=== PATIENT | male | born 1985 | race Hispanic/Latino ===

== ENCOUNTER 2025-03-25 14:20 | Emergency (ER) | payer SELFPAY ==
--- NOTE | ~2025-03-25 | CT_ITS ---
EXAMINATION: CT abdomen pelvis wo con DATE: 03/25/2025 16:42 INDICATION: Abdominal pain radiating to the scrotum. Evaluate kidney stones. TECHNIQUE: Computed tomography (CT) of the abdomen and pelvis was performed without intravenous contrast. Automated exposure control and iterative reconstruction technique were employed. The dose-length product was 597.17 mGy-cm. COMPARISON: Ultrasound scrotum dated 03/25/2025. FINDINGS: Lung bases do not show any focal lesions. No focal lesions of liver and spleen. Gallbladder, pancreas do not show acute findings. No evidence of calculi or obstruction of the kidneys. No evidence of bladder calculus. Normal size prostate. No evidence of small bowel obstruction. Normal size appendix. No acute findings of the lumbar spine. IMPRESSION: 1. Limited noncontrast study is not optimal to evaluate the vascular structures, neoplasms and solid viscera. 2. No evidence of calculi or obstruction of the kidneys. Reviewed, dictated and finalized at location [facility] IMPRESSION: 1. Limited noncontrast study is not optimal to evaluate the vascular structures , neoplasms and solid viscera. 2. No evidence of calculi or obstruction of the kidneys.
--- NOTE | ~2025-03-25 | US_ITS ---
EXAMINATION: Ultrasound scrotum with Doppler: DATE: 03/25/2025. INDICATION: Scrotal pain. Fever. No history of trauma. TECHNIQUE: High resolution ultrasound scrotum with color Doppler study. were obtained. COMPARISON: None. FINDINGS: No intratesticular lesions. Perfusion is noted within the testes on both sides. Small bilateral hydrocele. Small, 4 mm cyst of the epididymis on both sides. Small left varicocele. IMPRESSION: 1. Color perfusion noted within the testis on both sides. 2. Small bilateral hydrocele, small bilateral epididymis cysts and small left varicocele. Reviewed, dictated and finalized at location [facility] IMPRESSION: 1. Color perfusion noted within the testis on both sides. 2. Small bilateral hydrocele, small bilateral epididymis cysts and small left v aricocele.
[2025-03-25 14:43] VITALS: BP 132/81; PULSE 72; RESP 18; TEMP 36.7; O2SAT 99
--- NOTE | 2025-03-25 15:31 | ED_ITS ---
HPI - Fever General Chief Complaint: Urogenital-Male <Kaleigh Tinoco PA-C - Last Filed: 03/25/25 18:24> Stated Complaint: FEVER X3D, PAIN IN GROIN <Kaleigh Tinoco PA-C - Last Filed: 03/25/25 18:24> Time Seen by Provider: 03/25/25 15:31 <Kaleigh Tinoco PA-C - Last Filed: 03/25/25 18:24> Focused HPI: This is a 39 year old male that presents to the ER for fever for the last 4 days. Reports pain in his testicles. Denies dysuria, hematuria, vomiting. GENERAL: Well-appearing, well-nourished, and in no acute distress. HEAD: Normocephalic, atraumatic. CHEST: Clear to auscultation. ?No respiratory distress. HEART: Regular rate and rhythm.? NEURO: ?Alert and oriented x3. Patient screened in triage and initial orders placed.? ?Additional care and disposition to be based upon?diagnostic testing and treatment. <Kaleigh Tinoco PA-C - Last Filed: 03/25/25 18:24> History of Present Illness HPI Narrative: Patient 39-year-old gentleman who presents emergency department with chief complaint of subjective fevers at home and reporting that he has pain in his scrotal area whenever sits down patient reports he has had some urinary frequency denies dysuria reports no vomiting or diarrhea patient reports no trauma patient also reports that he has had a sore throat as well <Gordo Rivas MD - Last Filed: 03/25/25 17:45> Related Data Allergies/Adverse Reactions: Allergies Allergy/AdvReac Type Severity Reaction Status Date / Time No Known Allergies Allergy Verified 03/25/25 14:21 <Kaleigh Tinoco PA-C - Last Filed: 03/25/25 18:24> Review of Systems 2 Review of Systems: A 10 system review of systems was completed on the patient and is negative except for what is stated in the HPI. Nursing and ancillary documentation was reviewed. <Gordo Rivas MD - Last Filed: 03/25/25 17:45> Exam 2 Narrative: GENERAL: Well-appearing, well-nourished, and in no acute distress. HEAD: Normocephalic, atraumatic. EYES: PERRLA and EOMI. ENT: Nares clear, no rhinorrhea or epistaxis. Mucous membranes moist. NECK: Supple. CHEST: Clear to auscultation. No respiratory distress. HEART: Regular rate and rhythm. No murmur heard. Normal peripheral pulses. ABDOMEN: Soft, nontender, nondistended, normal active bowel sounds. : Testicles are nontender there is no appreciable abscess there is no ulcerations there is no necrotic tissue no subcutaneous emphysema EXTREMITIES: Normal range of motion. No edema. SKIN: Warm, dry, no rash. NEURO: No focal deficits. Alert and oriented x3. PSYCH: Normal mood and affect. <Gordo Rivas MD - Last Filed: 03/25/25 17:45> Course Vital Signs Vital signs: Vital Signs Temperature 98.1 F 03/25/25 14:43 Pulse Rate 72 03/25/25 14:43 Respiratory Rate 18 03/25/25 14:43 Blood Pressure 132/81 03/25/25 14:43 Pulse Oximetry 99 03/25/25 14:43 Oxygen Delivery Room Air 03/25/25 14:43 Temperature 98.1 F 03/25/25 17:00 Pulse Rate 64 03/25/25 17:00 Respiratory Rate 14 03/25/25 17:00 Blood Pressure 126/84 03/25/25 17:00 Pulse Oximetry 97 03/25/25 17:00 Oxygen Delivery Room Air 03/25/25 14:43 <Kaleigh Tinoco PA-C - Last Filed: 03/25/25 18:24> Vital Signs Temperature 98.1 F 03/25/25 14:43 Pulse Rate 72 03/25/25 14:43 Respiratory Rate 18 03/25/25 14:43 Blood Pressure 132/81 03/25/25 14:43 Pulse Oximetry 99 03/25/25 14:43 Oxygen Delivery Room Air 03/25/25 14:43 Temperature 98.1 F 03/25/25 17:00 Pulse Rate 64 03/25/25 17:00 Respiratory Rate 14 03/25/25 17:00 Blood Pressure 126/84 03/25/25 17:00 Pulse Oximetry 97 03/25/25 17:00 Oxygen Delivery Room Air 03/25/25 14:43 <Gordo Rivas MD - Last Filed: 03/25/25 17:45> MDM - Fever MDM Narrative Medical decision making narrative: Differential diagnosis includes UTI, STI, ureterolithiasis, testicular torsion Scrotal ultrasound showed 1. Color perfusion noted within the testis on both sides. 2. Small bilateral hydrocele, small bilateral epididymis cysts and small left varicocele. CT scan of the abdomen pelvis showed 1. Limited noncontrast study is not optimal to evaluate the vascular structures, neoplasms and solid viscera. 2. No evidence of calculi or obstruction of the kidneys. Urinalysis showed no evidence UTI chlamydia gonorrhea were negative <Gordo Rivas MD - Last Filed: 03/25/25 17:45> Lab Data Result diagrams: 03/25/25 17:03 03/25/25 17:03 <Kaleigh Tinoco PA-C - Last Filed: 03/25/25 18:24> Labs: Lab Results 03/25/25 03/25/25 Range/Units 15:30 17:03 WBC 7.0 (4.5-10.0) K/mm3 RBC 4.76 (4.6-6.20) M/mm3 Hgb 14.8 (14.0-18.0) g/dL Hct 42.1 (42.0-52.0) % MCV 88.4 (80-100) fl MCH 31.1 (26-34) pg MCHC 35.2 (32-36) g/dl RDW 12.2 (11.5-14.5) % Plt Count 211 (150-375) k/mm3 MPV 11.2 H (7.4-10.4) fl Immature Gran % (Auto) 0.1 (0-0.5) % Neut % (Auto) 44.7 L (45.5-73.1) % Lymph % (Auto) 45.6 H (18.3-44.2) % Hancock % (Auto) 8.0 (2.6-8.5) % Eos % (Auto) 1.0 (0-4.4) % Baso % (Auto) 0.6 (0.2-1.2) % Lymph # (Auto) 3.19 (0.9-3.2) K/mm3 Hancock # (Auto) 0.6 (0.1-0.6) K/mm3 Eos # (Auto) 0.1 (0-0.3) K/mm3 Baso # (Auto) 0.0 (0.0-0.1) K/mm3 Abs Immat Gran (auto) 0.01 (0.00-0.031) K/mm3 Absolute Neuts (auto) 3.1 (1.3-6.7) K/mm3 Absolute Nucleated RBC 0.000 (0.0-0.012) K/mm3 Nucleated RBC % 0.0 (0.0-0.2) % Sodium 137 (137-145) mmol/L Potassium 3.8 (3.4-5.0) mmol/L Chloride 106 (98-107) mmol/L Carbon Dioxide 23 (22-30) mmol/L Anion Gap 8 (4-12) mmol/L BUN 26 H (9-20) mg/dL Creatinine 0.84 (0.7-1.3) mg/dL Estim Creat Clear Calc 109 ml/min Estimated GFR > 60 (59 - ) Glucose 104 (65-110) mg/dL Calcium 9.1 (8.4-10.2) mg/dL Total Bilirubin 0.5 (0.2-1.3) mg/dL AST 33 (17-59) U/L ALT 30 (6-50) U/L Alkaline Phosphatase 75 (38-126) U/L Total Protein 7.6 (6.3-8.2) g/dL Albumin 4.5 (3.5-5.1) g/dL Lipase 69 (23-300) U/L Urine Color Yellow (Yellow) Urine Appearance Clear (Clear) Urine pH 5.5 (5.0-9.0) Ur Specific [place] 1.032 (1.001-1.035) Urine Protein Negative (Negative) mg/dL Urine Glucose (UA) Negative (Negative) mg/dL Urine Ketones Trace H (Negative) mg/dL Ur Blood (Man) Negative (Negative) Urine Nitrate Negative (Negative) Urine Bilirubin Negative (Negative) Urine Urobilinogen 1.0 (<2.0) mg/dL Leukocyte Esterase Rfl Negative (Negative) CONSTANTIN/UL C. trachomatis (PCR) Not detected (NOT DETECTE) N. gonorrhoeae (PCR) Not detected (NOT DETECTE) Group A Strep (PCR) Not detected (Negative) T. vaginalis (PCR) Not detected (NOT DETECTE) <Kaleigh Tinoco PA-C - Last Filed: 03/25/25 18:24> Lab Results 03/25/25 03/25/25 Range/Units 15:30 17:03 WBC 7.0 (4.5-10.0) K/mm3 RBC 4.76 (4.6-6.20) M/mm3 Hgb 14.8 (14.0-18.0) g/dL Hct 42.1 (42.0-52.0) % MCV 88.4 (80-100) fl MCH 31.1 (26-34) pg MCHC 35.2 (32-36) g/dl RDW 12.2 (11.5-14.5) % Plt Count 211 (150-375) k/mm3 MPV 11.2 H (7.4-10.4) fl Immature Gran % (Auto) 0.1 (0-0.5) % Neut % (Auto) 44.7 L (45.5-73.1) % Lymph % (Auto) 45.6 H (18.3-44.2) % Hancock % (Auto) 8.0 (2.6-8.5) % Eos % (Auto) 1.0 (0-4.4) % Baso % (Auto) 0.6 (0.2-1.2) % Lymph # (Auto) 3.19 (0.9-3.2) K/mm3 Hancock # (Auto) 0.6 (0.1-0.6) K/mm3 Eos # (Auto) 0.1 (0-0.3) K/mm3 Baso # (Auto) 0.0 (0.0-0.1) K/mm3 Abs Immat Gran (auto) 0.01 (0.00-0.031) K/mm3 Absolute Neuts (auto) 3.1 (1.3-6.7) K/mm3 Absolute Nucleated RBC 0.000 (0.0-0.012) K/mm3 Nucleated RBC % 0.0 (0.0-0.2) % Sodium 137 (137-145) mmol/L Potassium 3.8 (3.4-5.0) mmol/L Chloride 106 (98-107) mmol/L Carbon Dioxide 23 (22-30) mmol/L Anion Gap 8 (4-12) mmol/L BUN 26 H (9-20) mg/dL Creatinine 0.84 (0.7-1.3) mg/dL Estim Creat Clear Calc 109 ml/min Estimated GFR > 60 (59 - ) Glucose 104 (65-110) mg/dL Calcium 9.1 (8.4-10.2) mg/dL Total Bilirubin 0.5 (0.2-1.3) mg/dL AST 33 (17-59) U/L ALT 30 (6-50) U/L Alkaline Phosphatase 75 (38-126) U/L Total Protein 7.6 (6.3-8.2) g/dL Albumin 4.5 (3.5-5.1) g/dL Lipase 69 (23-300) U/L Urine Color Yellow (Yellow) Urine Appearance Clear (Clear) Urine pH 5.5 (5.0-9.0) Ur Specific [place] 1.032 (1.001-1.035) Urine Protein Negative (Negative) mg/dL Urine Glucose (UA) Negative (Negative) mg/dL Urine Ketones Trace H (Negative) mg/dL Ur Blood (Man) Negative (Negative) Urine Nitrate Negative (Negative) Urine Bilirubin Negative (Negative) Urine Urobilinogen 1.0 (<2.0) mg/dL Leukocyte Esterase Rfl Negative (Negative) CONSTANTIN/UL C. trachomatis (PCR) Not detected (NOT DETECTE) N. gonorrhoeae (PCR) Not detected (NOT DETECTE) Group A Strep (PCR) Not detected (Negative) T. vaginalis (PCR) Not detected (NOT DETECTE) <Gordo Rivas MD - Last Filed: 03/25/25 17:45> Imaging Data Radiologist's impression: ITS Impressions Scrotum Ultrasound 03/25/25 16:41 IMPRESSION: 1. Color perfusion noted within the testis on both sides. 2. Small bilateral hydrocele, small bilateral epididymis cysts and small left varicocele. Abdomen/Pelvis CT 03/25/25 16:45 IMPRESSION: 1. Limited noncontrast study is not optimal to evaluate the vascular structures, neoplasms and solid viscera. 2. No evidence of calculi or obstruction of the kidneys. <Kaleigh Tinoco PA-C - Last Filed: 03/25/25 18:24> Discharge Plan Discharge Clinical Impression: Pain in scrotum <Kaleigh Tinoco PA-C - Last Filed: 03/25/25 18:24> Patient Disposition: Home <Kaleigh Tinoco PA-C - Last Filed: 03/25/25 18:24> Condition: Stable <Kaleigh Tinoco PA-C - Last Filed: 03/25/25 18:24> Instructions: Antibiotic Form, Scrotal Pain (ED) <Kaleigh Tinoco PA-C - Last Filed: 03/25/25 18:24> Patient Language: Nauruan <Kaleigh Tinoco PA-C - Last Filed: 03/25/25 18:24> Follow-up/Referrals: Caitie Paz DO [Physician, Family Practice] PHYSICIAN,MANAGER FRONT OFFICE [Primary Care Provider, Internal Medicine] Pelon Lua MD [Physician, Urology] <Kaleigh Tinoco PA-C - Last Filed: 03/25/25 18:24> Time of Disposition: 17:42 <Kaleigh Tinoco PA-C - Last Filed: 03/25/25 18:24> 17:42 <Gordo Rivas MD - Last Filed: 03/25/25 17:45>
[2025-03-25 15:41] LABS: Add Urine Microscopic? NO; Appearance Urine Clear (Clear); Glucose Urine UA Negative (Negative); Leukocyte Esterase Ur Negative LEU/UL (Negative); Nitrate Urine Negative (Negative); Specific Grav Ur 1.032 (1.001-1.035)
--- NOTE | 2025-03-25 16:07 | PC.NURSE ---
attempted to bring pt back to a room and could not be found at this time
--- NOTE | 2025-03-25 16:10 | PC.NURSE ---
Pt. at ultrasound. office technologist notified that pt. should go to ER room 20 when done with ultrasound.
--- NOTE | 2025-03-25 16:16 | PC.NURSE ---
no answer at 1603
[2025-03-25 16:44] LABS: Trichomonas Vag PCR NOT DETECTED (NOT DETECTE)
[2025-03-25 17:00] VITALS: BP 126/84; PULSE 64; RESP 14; TEMP 36.7; O2SAT 97
[2025-03-25 17:09] LABS: Hematocrit 42.1 % (42.0-52.0); Hemoglobin 14.8 g/dL (14.0-18.0); Immature Granulocyte Percent A 0.1 % (0-0.5); Lymphocytes Absolute Auto 3.19 K/mm3 (0.9-3.2); Mean Corpuscular HGB Conc 35.2 g/dl (32-36); Mean Corpuscular Hemoglobin 31.1 pg (26-34); Mean Corpuscular Volume 88.4 fl (80-100); Nucleated Red Blood Cells Absolute Auto 0.000 K/mm3 (0.0-0.012); Nucleated Red Blood Cells Perc 0.0 % (0.0-0.2); Platelet Count Result 211 k/mm3 (150-375); Red Blood Count 4.76 M/mm3 (4.6-6.20); White Blood Count 7.0 K/mm3 (4.5-10.0)
[2025-03-25 17:20] LABS: Alanine Aminotransferase 30 U/L (6-50); Albumin Level 4.5 g/dL (3.5-5.1); Alkaline Phosphatase 75 U/L (38-126); Anion Gap 8 mmol/L (4-12); Aspartate Amino Transferase 33 U/L (17-59); Bilirubin,Total 0.5 mg/dL (0.2-1.3); Blood Urea Nitrogen 26 mg/dL (9-20); Calcium 9.1 mg/dL (8.4-10.2); Carbon Dioxide 23 mmol/L (22-30); Chloride 106 mmol/L (98-107); Estimated CRCL calculation 109 ml/min; Estimated Glomerular Filt Rate > 60; Glucose 104 mg/dL (65-110); Lipase 69 U/L (23-300); Potassium 3.8 mmol/L (3.4-5.0); Sodium 137 mmol/L (137-145); Total Protein 7.6 g/dL (6.3-8.2)
[2025-03-25 17:34] LABS: Strep Group A RT-PCR NOT DETECTED (Negative)
== END 2025-03-25 17:57 | disposition home or self-care (01) ==
PROVIDERS: Physician Assistant; Emergency Provider Emergency Medicine
DX: N50.82 Scrotal pain (principal)
CPT/HCPCS: 36415; 74176; 76870; 80053; 81003; 83690; 85025; 87491; 87591; 87651; 87661; 93976; 99284